=== PATIENT | male | born 1970 | race Caucasian/White ===

== ENCOUNTER → 2024-08-19 15:02 | Outpatient (CLI) | payer OTHER, SELFPAY ==
--- NOTE | 2024-08-19 15:04 | DI.NM.S_ITS ---
PROCEDURE: NM EXERCISE TREADMILL NON NUC COMPARISON: None. INDICATIONS: PALPITATIONS /H/O PAROX ATACH/L SIDED CHEST PAIN FINDINGS: The patient exercised for 10 minutes and 25 seconds reaching 108% of maximum predicted heart rate (12.8METs, LUIS -5%). Appropriate BP response to exercise. No diagnostic ST changes and no angina during exercise or recovery. Rare PVCs present. IMPRESSION: Low risk, normal treadmill ECG only stress test from inducible ischemia standpoint and slightly above average exercise tolerance (LUIS -5%). Dictated by: Tyree Rico MD on 08/20/2024 at 9:56 Approved by: Tyree Rico MD on 08/20/2024 at 9:58
== END ==
PROVIDERS: Referring Provider Internal Medicine Cardiovascular Disease; Visit Provider Internal Medicine Cardiovascular Disease
DX: R07.9 Chest pain, unspecified (principal); R00.2 Palpitations; Z86.79 Personal history of other diseases of the circulatory system
CPT/HCPCS: 93017